=== PATIENT | female | born 1960 | race Caucasian/White ===

== ENCOUNTER 2020-12-27 10:51 | Emergency (ER) | payer OTHER ==
[~2020-12-27] VITALS: Ht 165.1 cm; Wt 90.7 kg
[2020-12-27] MEDS ORDERED: ZUPLENZ4 MG PO (11:09)
[2020-12-27] MEDS ORDERED: HYDROCODON-ACE1 EA10 PO (11:09)
[2020-12-28] MEDS ORDERED: ONDANSETRON ODT4 MG PO (07:59)
[2020-12-28] MEDS ORDERED: HYDROCODON-ACE1 EA10 PO (08:01)
[2020-12-28] MEDS ORDERED: OMEPRAZOLE20 M1 PO (08:02)
[2020-12-28] MEDS ORDERED: CELECOXIB200 MG PO (10:05)
[2020-12-28] MEDS ORDERED: HYDROCODON-ACE1 EA11 PO (10:05)
== END 2020-12-27 12:24 | disposition home or self-care (01) ==
LOC: ED 10:51
DX: S52.571A Other intraarticular fracture of lower end of right radius, initial encounter for closed fracture (principal); W01.10XA Fall on same level from slipping, tripping and stumbling with subsequent striking against unspecified object, initial encounter
CPT/HCPCS: 29125; 73110; 99283-25; A9270